=== PATIENT | male | born 1950 | race Caucasian/White ===

== ENCOUNTER 2017-02-03 13:30 | Outpatient (CLI) | payer OTHER ==
--- NOTE | 2017-02-03 15:58 | DIAGNOSTIC IMAGING REPORT ---
PROCEDURE: US BILATERAL CAROTID DOPPLER INDICATION: HYPTERTESION; TYPE 2 DIABETIS TECHNIQUE: Color Doppler duplex imaging of the carotid and vertebral vessels. COMPARISON: None. FINDINGS: Right carotid system: No significant stenosis visualized. The waveforms are normal. Moderate calcified plaque Left carotid system: No significant stenosis visualized. The waveforms are normal. Moderate calcified plaque Vertebral System: Antegrade vertebral artery flow bilaterally. Right common carotid artery peak systolic velocity 77 cm/second. Right internal carotid artery peak systolic velocity 77 cm/second. Right external carotid artery peak systolic velocity 61 cm/second. Right vetzjcrf-es-upybra carotid artery ratio 1.0 Right vertebral artery peak systolic velocity 62 cm/second. Left common carotid artery peak systolic velocity 80 cm/second. Left internal carotid artery peak systolic velocity 64 cm/second. Left external carotid artery peak systolic velocity 91 cm/second. Left knhpcpay-ot-swpava carotid artery ratio 0.8 Left vertebral artery peak systolic velocity 20 cm/second. IMPRESSION: 1. No hemodynamically significant stenosis in either carotid system. 2. Antegrade vertebral artery flow bilaterally. Velocity criteria are extrapolated from diameter data as defined by the Society of Radiologists in Ultrasound Consensus Conference, Radiology 2003; 229; 340-346.
--- NOTE | 2017-02-03 15:58 | DIAGNOSTIC IMAGING REPORT ---
PROCEDURE: US BILATERAL CAROTID DOPPLER INDICATION: HYPTERTESION; TYPE 2 DIABETIS TECHNIQUE: Color Doppler duplex imaging of the carotid and vertebral vessels. COMPARISON: None. FINDINGS: Right carotid system: No significant stenosis visualized. The waveforms are normal. Moderate calcified plaque Left carotid system: No significant stenosis visualized. The waveforms are normal. Moderate calcified plaque Vertebral System: Antegrade vertebral artery flow bilaterally. Right common carotid artery peak systolic velocity 77 cm/second. Right internal carotid artery peak systolic velocity 77 cm/second. Right external carotid artery peak systolic velocity 61 cm/second. Right jqflzmja-gk-xfnrru carotid artery ratio 1.0 Right vertebral artery peak systolic velocity 62 cm/second. Left common carotid artery peak systolic velocity 80 cm/second. Left internal carotid artery peak systolic velocity 64 cm/second. Left external carotid artery peak systolic velocity 91 cm/second. Left xrxpqgwa-mk-lmqdrv carotid artery ratio 0.8 Left vertebral artery peak systolic velocity 20 cm/second. IMPRESSION: 1. No hemodynamically significant stenosis in either carotid system. 2. Antegrade vertebral artery flow bilaterally. Velocity criteria are extrapolated from diameter data as defined by the [employer] of Radiologists in Ultrasound Consensus Conference, Radiology 2003; 229; 340-346.
== END 2017-02-03 23:00 ==
LOC: US SRH 13:30
DX: I10 Essential (primary) hypertension (principal); E11.9 Type 2 diabetes mellitus without complications